=== PATIENT | female | born 1950 | race Caucasian/White ===

== ENCOUNTER → 2022-10-22 13:53 | Outpatient (BNVA) | payer OTHER, SELFPAY | PROVIDERS: PCP Internal Medicine; Visit Provider Psychiatry & Neurology Neurology | DX: G43.909 Migraine, unspecified, not intractable, without status migrainosus (principal) ==

== ENCOUNTER → 2022-12-31 10:28 | Outpatient (BNVA) | payer OTHER, SELFPAY | PROVIDERS: PCP Internal Medicine; Visit Provider Nurse Practitioner Family | DX: Z13.89 Encounter for screening for other disorder (principal) ==

== ENCOUNTER → 2023-04-02 11:00 | Outpatient (BNVA) | payer OTHER, SELFPAY | PROVIDERS: PCP Internal Medicine; Visit Provider Nurse Practitioner Family ==

== ENCOUNTER 2023-10-04 10:57 | Outpatient (AMB) | payer OTHER, SELFPAY ==
--- NOTE | 2023-10-04 11:00 | A.OFFVIS_ITS ---
Intake Vital Signs 10/04/23 11:01 Weight 115 lb BP 140/82 H Blood Pressure Location Lt brachial Position Sitting Pulse 78 Pulse Source Pulse Oximeter Pulse Oximetry (%) 98 Oxygen Delivery Method Room Air Intake Visit Reasons: 6m follow up stoke/ Confirmed Allergies cephalexin [From Keflex] Allergy (Unknown, Verified 10/04/23 11:03) Unknown erythromycin base Allergy (Unknown, Verified 10/04/23 11:03) Unknown Penicillins Allergy (Unknown, Verified 10/04/23 11:03) Unknown Sulfa (Sulfonamide Antibiotics) Allergy (Unknown, Verified 10/04/23 11:03) Unknown tetracycline Allergy (Unknown, Verified 10/04/23 11:03) Unknown Medication List - Last Reconciled 10/04/23 by Mirtha Gr, JANINA apixaban (Eliquis) 2.5 mg PO BID fluorometholone 0.1% 1 drp ophthalmic (eye) Q6H loratadine 10 mg PO DAILY lorazepam 1 mg PO DAILY PRN netarsudil-latanoprost 0.02-0.005 % (Rocklatan) 1 drp ophthalmic (eye) DAILY topiramate 1/2 tab qam and 1 tab qhs orally .; 90 days ubrogepant (Ubrelvy) 100 mg orally at onset of headaches , can repeta in 2 hrs if needed; maximum 2 tabs a day MDD 2 tabs HPI HPI Comments History of Present Illness Details 73-yr-old female presents for f/u visit, accompanied by her . Pt denies any significant interval medical changes. In Aug, pt reached out d/t worsening migraine. We increased Topiramate to 25mg qam and 50mg qhs. She is tolerating this increase well She denies any recent severe migraine since increasing Topiramate, however still having at least a low grade headache most days. Using Tylenol prn- has used it 4-5 x's since mid-Aug. Has not been needing to use Ubrelvy. She is wondering about taking her Lorazepam for an upcoming flight/vacation to [place]. [facility] Medical History Migraine Back pain Eczema Anxiety Pulmonary embolism Adrenal adenoma DVT (deep venous thrombosis) SAH (subarachnoid hemorrhage) Left homonymous hemianopsia CVA (cerebral vascular accident) PFO (patent foramen ovale) Depression Right shoulder pain HTN (hypertension) Surgical History Hx of cataract surgery S/P patent foramen ovale closure Status post tonsillectomy and adenoidectomy H/O colonoscopy Family History Father Coronary artery disease HTN (hypertension) Hyperlipidemia Mother Diabetes Hyperlipidemia HTN (hypertension) Brother Leukemia Social History (Updated 10/04/23 @ 11:05 by Yesenia Giraldo) Alcohol intake: current Alcohol intake frequency: holidays/special occasions only Patient Tobacco Use Status: Never used Tobacco Review of Systems Const All systems reviewed & are unremarkable except as noted in HPI and below Physical Exam Vital Signs: Last Vital Signs Pulse 78 10/04/23 11:01 BP 140/82 H 10/04/23 11:01 Pulse Ox 98 10/04/23 11:01 Oxygen Delivery Method Room Air 10/04/23 11:01 Const General: cooperative and no acute distress Orientation/consciousness: patient oriented x3 HEENT Head: Yes normocephalic Resp Effort & Inspection: normal respiratory effort and able to speak in complete sentences Neuro General: patient oriented x3, gait normal and CN's II-XI intact bilaterally Cognition (Neuro): normal cognition Motor exam (neuro): 5/5 motor strength present throughout Psych Appearance: grossly normal Mental Status: mental status grossly normal Speech and movement: Normal speech and movement present Affect: normal affect Attitude: cooperative Thought process: Normal thought process present Thought content: Normal thought content present Insight: Good insight present (Psych) Judgement: Good judgement present (Psych) Assessment & Plan Assessment & Plan (1) Migraine: Code(s): G43.909 - Migraine, unspecified, not intractable, without status migrainosus (2) Anxiety: Code(s): F41.9 - Anxiety disorder, unspecified (3) CVA (cerebral vascular accident): Code(s): I63.9 - Cerebral infarction, unspecified Plan For migraine prevention: Increase Topiramate from 25mg qam and 50mg qhs to 50mg bid- start after coming back from [place]. Previous trials: Propranolol, Amitriptyline- ineffective. Riboflavin 400mg qam and Magnesium 400mg qhs- caused GI s/e's Future considerations: CGRP MaB ? For acute migraine tx: Tylenol prn. Continue Ubrelvy 100mg prn, may repeat in 2 hrs (max 200mg/day), may adjunct w/ Tylenol. Contraindications: NSAIDs d/t Eliquis use. ? For h/o CVA: Continue Eliquis. ? f/u in 6 months or sooner prn Medications: Changed From topiramate 1/2 tab qam and 1 tab qhs orally .; 90 days 145 tabs 1RF To topiramate 50 mg PO BID 90 days 180 tabs 1RF Coding Level of Care Code Est Pt Level 4 (19724) Diagnoses Migraine G43.909 Anxiety F41.9 CVA (cerebral vascular accident) I63.9
[2023-10-04 11:01] VITALS: BP 140/82; PULSE 78; O2SAT 98
== END 2023-10-04 11:55 | disposition home or self-care (01) ==
PROVIDERS: PCP Internal Medicine; Visit Provider Nurse Practitioner Family
DX: G43.909 Migraine, unspecified, not intractable, without status migrainosus (principal); F41.9 Anxiety disorder, unspecified; I69.398 Other sequelae of cerebral infarction
CPT/HCPCS: 99214

== ENCOUNTER → 2023-10-04 10:57 | Outpatient (BNVA) | payer OTHER, SELFPAY | PROVIDERS: PCP Internal Medicine; Visit Provider Nurse Practitioner Family ==

== ENCOUNTER 2024-04-03 11:32 | Outpatient (AMB) | payer OTHER, SELFPAY ==
--- NOTE | 2024-04-03 11:33 | A.OFFVIS_ITS ---
Vital Signs 04/03/24 11:34 Height 5 ft 2 in Weight 112 lb BMI 20.5 BP 144/74 H Blood Pressure Location Lt brachial Position Sitting Pulse 82 Pulse Source Pulse Oximeter Pulse Oximetry (%) 99 Oxygen Delivery Method Room Air Intake Visit Reasons: 6 mo f/u - Stoke-CONF Intake Note: Patient presents for 6 month follow up stroke. patient has no issues Allergies cephalexin [From Keflex] Allergy (Unknown, Verified 04/03/24 11:37) Unknown erythromycin base Allergy (Unknown, Verified 04/03/24 11:37) Unknown Penicillins Allergy (Unknown, Verified 04/03/24 11:37) Unknown Sulfa (Sulfonamide Antibiotics) Allergy (Unknown, Verified 04/03/24 11:37) Unknown tetracycline Allergy (Unknown, Verified 04/03/24 11:37) Unknown Medication List - Last Reconciled 04/03/24 by JANINA Lundberg apixaban (Eliquis) 2.5 mg PO BID fluorometholone 0.1% 1 drp ophthalmic (eye) Q6H loratadine 10 mg PO DAILY lorazepam 1 mg PO DAILY PRN netarsudil-latanoprost 0.02-0.005 % (Rocklatan) 1 drp ophthalmic (eye) DAILY topiramate 50 mg PO BID 90 days ubrogepant (Ubrelvy) 100 mg orally at onset of headaches , can repeta in 2 hrs if needed; maximum 2 tabs a day MDD 2 tabs HPI Comments Details: 73-yr-old female presents for f/u visit. Pt denies any significant interval medical changes. Pt states her migraines are well-controlled with the increased Topiramate. She is tolerating the Topiramate well. Now just has a brief headache that resolves with closing her eyes. Has not needed to sonny Tylenol or Ubrelvy in a long time. Her BP is a bit elevated today- 144/76- pt states tends be slightly elevated when checked at an MD office. She does not usually check her BP at home- her has a BP cuff. [facility] Medical History Migraine Back pain Eczema Anxiety Pulmonary embolism Adrenal adenoma DVT (deep venous thrombosis) SAH (subarachnoid hemorrhage) Left homonymous hemianopsia CVA (cerebral vascular accident) PFO (patent foramen ovale) Depression Right shoulder pain HTN (hypertension) Surgical History Hx of cataract surgery S/P patent foramen ovale closure Status post tonsillectomy and adenoidectomy H/O colonoscopy Family History Father Coronary artery disease HTN (hypertension) Hyperlipidemia Mother Diabetes Hyperlipidemia HTN (hypertension) Brother Leukemia Social History (Updated 10/04/23 @ 11:05 by Yesenia Giraldo) Alcohol intake: current Alcohol intake frequency: holidays/special occasions only Patient Tobacco Use Status: Never used Tobacco Physical Exam Vital Signs: Last Vital Signs Pulse 82 04/03/24 11:34 BP 144/74 H 04/03/24 11:34 Pulse Ox 99 04/03/24 11:34 Oxygen Delivery Method Room Air 04/03/24 11:34 BMI result Body Mass Index 20.5 Const General: cooperative and no acute distress Orientation/consciousness: patient oriented x3 Resp Effort & Inspection: normal respiratory effort and able to speak in complete sentences Neuro General: patient oriented x3 Cranial nerves: Yes CN's II-XII intact bilaterally Cognition (Neuro): normal cognition Psych Appearance: grossly normal Mental Status: mental status grossly normal Speech and movement: Normal speech and movement present Affect: normal affect Attitude: cooperative Assessment & Plan Assessment & Plan (1) Migraine: Code(s): G43.909 - Migraine, unspecified, not intractable, without status migrainosus Category: Medical (2) CVA (cerebral vascular accident): Code(s): I63.9 - Cerebral infarction, unspecified Category: Medical (3) HTN (hypertension): Code(s): I10 - Essential (primary) hypertension Category: Medical Plan For migraine prevention: Continue Topiramate 50mg bid. Previous trials: Propranolol, Amitriptyline- ineffective. Riboflavin 400mg qam and Magnesium 400mg qhs- caused GI s/e's Future considerations: CGRP MaB ? For acute migraine tx: Tylenol prn. Continue Ubrelvy 100mg prn, may repeat in 2 hrs (max 200mg/day), may adjunct w/ Tylenol. Contraindications: NSAIDs d/t Eliquis use. ? For h/o CVA: Advised to check BP at home- to assess if BP are truly lower at home. If elevated BP persists, consider anti-HTN tx. Continue Eliquis. ? f/u in 6 months or sooner prn Coding Level of Care Code Est Pt Level 4 (12604) Diagnoses Migraine G43.909 CVA (cerebral vascular accident) I63.9 HTN (hypertension) I10
[2024-04-03 11:34] VITALS: BP 144/74; PULSE 82; O2SAT 99; BMI 20.5
== END 2024-04-03 12:15 | disposition home or self-care (01) ==
PROVIDERS: PCP Internal Medicine; Visit Provider Nurse Practitioner Family
DX: G43.909 Migraine, unspecified, not intractable, without status migrainosus (principal); I69.398 Other sequelae of cerebral infarction; I10 Essential (primary) hypertension
CPT/HCPCS: 99214

== ENCOUNTER → 2024-04-03 11:32 | Outpatient (BNVA) | payer OTHER, SELFPAY | PROVIDERS: PCP Internal Medicine; Visit Provider Nurse Practitioner Family ==

== ENCOUNTER 2024-10-23 10:56 | Outpatient (AMB) | payer OTHER, SELFPAY ==
--- NOTE | 2024-10-23 11:03 | A.OFFVIS_ITS ---
Vital Signs 10/23/24 11:08 Height 5 ft 2 in Weight 112 lb BMI 20.5 Intake Visit Reasons: 6 month F/U Intake Note: patient presents for 6 month follow up Allergies cephalexin [From Keflex] Allergy (Unknown, Verified 10/23/24 11:07) Unknown erythromycin base Allergy (Unknown, Verified 10/23/24 11:07) Unknown Penicillins Allergy (Unknown, Verified 10/23/24 11:07) Unknown Sulfa (Sulfonamide Antibiotics) Allergy (Unknown, Verified 10/23/24 11:07) Unknown tetracycline Allergy (Unknown, Verified 10/23/24 11:07) Unknown Medication List - Last Reconciled 10/23/24 by Sasha Simpson PA-C apixaban (Eliquis) 2.5 mg PO BID fluorometholone 0.1% 1 drp ophthalmic (eye) Q6H loratadine 10 mg PO DAILY lorazepam 1 mg PO DAILY PRN netarsudil-latanoprost 0.02-0.005 % (Rocklatan) 1 drp ophthalmic (eye) DAILY topiramate 50 mg PO BID 90 days ubrogepant (Ubrelvy) 100 mg orally at onset of headaches , can repeta in 2 hrs if needed; maximum 2 tabs a day MDD 2 tabs HPI Comments Details: 74-yr-old left handed female presents for f/u of chronic migraines post TIA/CVA. Pt denies any significant interval medical changes. She states the migraines are well-controlled with the increased dose of Topiramate 50mg PO BID. Once in a while if she does not go to sleep on time, they will occur, slight teeny tiny headache , not migraines. The Ubrelvy did not help her migraines. She has not used Tylenol in months. She drinks lots of fluids, has a good diet, knows and avoids triggers, walks on the treadmill daily, sleeps well. Vision in the left eye is improving, followed by Dr. Paulino in [place], for glaucoma. Denies constipation, mood or cognitive decline, doesn't drive since the stroke. Blood pressure is stable, she states it tends to be slightly elevated when checked at the MD's office. She does not usually check her BP at home- her has a BP cuff. [facility] Medical History Migraine Back pain Eczema Anxiety Pulmonary embolism Adrenal adenoma DVT (deep venous thrombosis) SAH (subarachnoid hemorrhage) Left homonymous hemianopsia CVA (cerebral vascular accident) PFO (patent foramen ovale) Depression Right shoulder pain HTN (hypertension) Surgical History Hx of cataract surgery S/P patent foramen ovale closure Status post tonsillectomy and adenoidectomy H/O colonoscopy Family History Father Coronary artery disease HTN (hypertension) Hyperlipidemia Mother Diabetes Hyperlipidemia HTN (hypertension) Brother Leukemia Social History Alcohol intake: current Alcohol intake frequency: holidays/special occasions only Patient Tobacco Use Status: Never used Tobacco Review of Systems Const All systems reviewed & are unremarkable except as noted in HPI and below Physical Exam Vital Signs: BMI result Body Mass Index 20.5 Const General: cooperative, comfortable and no acute distress Nutritional Appearance: average body habitus Orientation/consciousness: patient oriented x3 HEENT Face and sinus: Yes normal facial exam and Yes face symmetric Eyes Pupils: Equal, round and reactive pupils present Resp Effort & Inspection: normal respiratory effort and able to speak in complete sentences Neuro General: patient oriented x3 and moves all extremities Cranial nerves: Yes CN's II-XII intact bilaterally, Yes Equal, round and reactive pupils present, Yes Normal accommodation reflex present, Yes Bilaterally intact EOM present, Yes Normal facial strength present, Yes Midline tongue present, Yes Symmetric palate elevation present, Yes Ability to bilaterally rotate head present and Yes Ability to bilaterally elevate shoulders present Cognition (Neuro): normal cognition Gait exam (Neuro): Normal gait present Motor exam (neuro): 5/5 motor strength present throughout, Normal motor muscle tone present throughout and Other motor observations present (L. hand slight tremor) Deep tendon reflexes (DTR's): Right triceps reflex intensity grade: 2+, Left triceps reflex intensity grade: 2+, Rt Biceps (C5, C6): 2+, Left biceps reflex intensity grade: 2+, Right brachioradialis reflex intensity grade: 2+, Left brachioradialis reflex intensity grade: 2+, Right patellar reflex intensity grade: 2+ and Left patellar reflex intensity grade: 2+ Coordination: [id number] test normal Psych Appearance: grossly normal Speech and movement: Normal speech and movement present Affect: normal affect Attitude: cooperative Thought process: Normal thought process present Thought content: Normal thought content present Insight: Good insight present (Psych) Judgement: Good judgement present (Psych) Results Reviewed Results Reviewed: MRI 2022 - Chronic small vessel ischemia, white matter hypodensities and lacunar infarcts, volume loss. Encephalomalacic changes - R. Temporal and Parieto- occiptal lobes, with ex- vaccuo dilation of body and occipital lobe. DX: Transient Global Amnesia DDX: TIA / CVA/ Anxiety Assessment & Plan Assessment & Plan (1) Migraine: Code(s): G43.909 - Migraine, unspecified, not intractable, without status migrainosus Category: Medical Qualifiers: Intractability: intractable Migraine type: other Status migrainosus presence: without status migrainosus Qualified Code(s): G43.819 - Other migraine, intractable, without status migrainosus (2) CVA (cerebral vascular accident): Code(s): I63.9 - Cerebral infarction, unspecified Category: Medical Qualifiers: CVA mechanism: unspecified Qualified Code(s): I63.9 - Cerebral infarction, unspecified (3) HTN (hypertension): Code(s): I10 - Essential (primary) hypertension Category: Medical Qualifiers: Hypertension type: primary hypertension Qualified Code(s): I10 - Essential (primary) hypertension Plan For migraine prevention: Continue Topiramate 50mg bid. Previous trials: Propranolol, Amitriptyline- ineffective. Riboflavin 400mg qam and Magnesium 400mg qhs- caused GI s/e's Future considerations: CGRP MaB ? For acute migraine tx: Tylenol prn. Continue Ubrelvy 100mg prn, may repeat in 2 hrs (max 200mg/day), may adjunct w/ Tylenol. Contraindications: NSAIDs d/t Eliquis use. ? For h/o CVA: Advised to check BP at home- to assess if BP are truly lower at home. If elevated BP persists, consider anti-HTN tx. Continue Eliquis. ? f/u in 6 months or sooner prn Medications: Refilled topiramate 50 mg PO BID 180 tabs 1RF 90 days Coding Level of Care Code Est Pt Level 4 (76060) Diagnoses Other migraine without status migrainosus, intractable G43.819 Intractability: intractable Migraine type: other Status migrainosus presence: without status migrainosus Cerebrovascular accident (CVA), unspecified mechanism I63.9 CVA mechanism: unspecified Primary hypertension I10 Hypertension type: primary hypertension Time Spent (min) 40 Comment Improved migraines
[2024-10-23 11:08] VITALS: BMI 20.5
== END 2024-10-23 11:38 | disposition home or self-care (01) ==
PROVIDERS: PCP Internal Medicine; Visit Provider Nurse Practitioner Family
DX: I69.398 Other sequelae of cerebral infarction (principal); G43.819 Other migraine, intractable, without status migrainosus; I10 Essential (primary) hypertension
CPT/HCPCS: 99215

== ENCOUNTER 2025-04-23 11:01 | Outpatient (AMB) | payer OTHER, SELFPAY ==
[2025-04-23 11:02] VITALS: BP 148/80; PULSE 70; O2SAT 100; BMI 20.4
--- NOTE | 2025-04-23 11:02 | MHC.OFFVIS ---
Vital Signs 04/23/25 11:02 Height 5 ft 2 in Weight 111 lb 6 oz BMI 20.4 BP 148/80 H Blood Pressure Location Rt brachial Position Sitting Pulse 70 Pulse Source Pulse Oximeter Pulse Oximetry (%) 100 Oxygen Delivery Method Room Air Intake Visit Reasons: 6 month F/U Intake Note: Patient here for a follow-up, feeling headache free. 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 Pt denies any significant interval medical changes. She says she sleeps well, and her tells her she snores, she does not wake her self up or gasp for air. She states the migraines are well-controlled with the increased dose of Topiramate 50mg PO BID. Once in a while if she does not go to sleep on time, they will occur, slight teeny tiny headache , not migraines. The Ubrelvy did not help her migraines and she has not used Tylenol in months. She drinks lots of fluids, has a good diet, knows and avoids triggers, walks on the treadmill daily, sleeps well. Vision in the left eye is improving, she is able to see peripherally at the edge of the l. eye better now, and she is followed by Dr. Paulino in [facility], for glaucoma adminsters Rocklatan drops at night and refresh at night. Denies constipation, mood or cognitive decline, doesn't drive since the stroke in 2017. Blood pressure is stable, she states it tends to be slightly elevated when checked at the MD's office. She does not usually check her BP at home- her has a BP cuff, though her bp is 148/80 in clinic today. Patient Education re: HTN being the #1 modifiable risk factor to avoid cardiovascular events, and she should have a conversation with her pcp if BP is not well managed. PSG and benefits of cpap discussed today, she will think about it and f/u. Labs? [facility] Medical History Migraine Back pain Eczema Anxiety Pulmonary embolism Adrenal adenoma DVT (deep venous thrombosis) SAH (subarachnoid hemorrhage) Left homonymous hemianopsia CVA (cerebral vascular accident) PFO (patent foramen ovale) Depression Right shoulder pain HTN (hypertension) Surgical History Hx of cataract surgery S/P patent foramen ovale closure Status post tonsillectomy and adenoidectomy H/O colonoscopy Family History Father Coronary artery disease HTN (hypertension) Hyperlipidemia Mother Diabetes Hyperlipidemia HTN (hypertension) Brother Leukemia Social History Alcohol intake: current Alcohol intake frequency: holidays/special occasions only Patient Tobacco Use Status: Never used Tobacco Physical Exam Vital Signs: Last Vital Signs Pulse 70 04/23/25 11:02 BP 148/80 H 04/23/25 11:02 Pulse Ox 100 04/23/25 11:02 Oxygen Delivery Method Room Air 04/23/25 11:02 BMI result Body Mass Index 20.4 Const General: cooperative, comfortable and no acute distress Nutritional Appearance: average body habitus Orientation/consciousness: patient oriented x3 HEENT Face and sinus: Yes normal facial exam and Yes face symmetric Eyes Pupils: Equal, round and reactive pupils present Resp Effort & Inspection: normal respiratory effort and able to speak in complete sentences Neuro Other: Eyes are bilaterally irritated sclera, her baseline. General: patient oriented x3 and moves all extremities Cranial nerves: Yes CN's II-XII intact bilaterally, Yes Equal, round and reactive pupils present, Yes Normal accommodation reflex present, Yes Bilaterally intact EOM present, Yes Normal facial strength present, Yes Midline tongue present, Yes Symmetric palate elevation present, Yes Ability to bilaterally rotate head present and Yes Ability to bilaterally elevate shoulders present Cognition (Neuro): normal cognition Gait exam (Neuro): Normal gait present Motor exam (neuro): 5/5 motor strength present throughout, Normal motor muscle tone present throughout and Other motor observations present (L. hand slight tremor) Coordination: [id number] test normal Psych Appearance: grossly normal Speech and movement: Normal speech and movement present Affect: normal affect Attitude: cooperative Thought process: Normal thought process present Thought content: Normal thought content present Insight: Good insight present (Psych) Judgement: Good judgement present (Psych) Results Reviewed Results Reviewed: Medical Note 12/2022 re: AMS TIA/ TVL / Ischemic Assessment & Plan Assessment & Plan (1) Migraine: Comment: topiramate rf requested today 50mg PO BID Code(s): G43.909 - Migraine, unspecified, not intractable, without status migrainosus Category: Medical Qualifiers: Migraine type: other Status migrainosus presence: without status migrainosus Intractability: intractable Qualified Code(s): G43.819 - Other migraine, intractable, without status migrainosus (2) CVA (cerebral vascular accident): Code(s): I63.9 - Cerebral infarction, unspecified Category: Medical Qualifiers: CVA mechanism: unspecified Qualified Code(s): I63.9 - Cerebral infarction, unspecified (3) HTN (hypertension): Code(s): I10 - Essential (primary) hypertension Category: Medical Qualifiers: Hypertension type: primary hypertension Qualified Code(s): I10 - Essential (primary) hypertension (4) Loud snoring: Comment: declines psg today, will consider it and f/u Code(s): R06.83 - Snoring Category: Medical Plan Snoring PSG: will consider and f/u with clinic. For migraine prevention: Continue Topiramate 50mg bid. Previous trials: Ubrelvy, Propranolol, Amitriptyline- ineffective. Riboflavin 400mg qam and Magnesium 400mg qhs- caused GI s/e's Future considerations: CGRP MaB ? For acute migraine tx: No longer takes tylenolol. Did not tolerate Ubrelvy 100mg prn. Contraindications: NSAIDs d/t Eliquis use. ? For h/o CVA: Advised to check BP at home- to assess if BP are truly lower at home. If elevated BP persists, consider anti-HTN tx. Continue Eliquis. ? f/u in 6 months or sooner prn Medications: Changed From topiramate 50 mg PO BID 90 days 180 tabs 1RF G43.819 - Other migraine, intractable, without status migrainosus To topiramate take 1(50mg tablet) by mouth twice a day. 50 mg PO BID 180 tabs 3RF migraines 90 days MDD 100mg G43.819 - Other migraine, intractable, without status migrainosus Patient Instructions: Sleep Hygiene provided: set a scheduled bedtime and wake time to help regulate the circadian rhythm and balance the release of pituitary hormones. Sleep in a dark room, temperatures below 68 degrees, and no devices n bed. Limit caffeinated products 6 hours prior to bed, and limit fluids 2-4 hours prior to bed. Gentle night yoga, diffusing essential oils, and playing soft music can be relaxing. Coding Level of Care Code Est Pt Level 4 (36048) Diagnoses Other migraine without status migrainosus, intractable G43.819 Migraine type: other Status migrainosus presence: without status migrainosus Intractability: intractable Cerebrovascular accident (CVA), unspecified mechanism I63.9 CVA mechanism: unspecified Primary hypertension I10 Hypertension type: primary hypertension Loud snoring R06.83 Time Spent (min) 20 Comment Improving
--- OUTSIDE RECORDS SUMMARY | 2025-04-23 12:35 | XMS_ITS | Clinical Summary ---
Author Organization [facility] Address [address] [place] [address] Phone Care Team Providers Care Phonograph Mechanic Name Role Phone Fareed Crawford MD Primary Care Provider [phone] Allergies Active Allergy Reactions Criticality Noted Date Comments Cephalexin 04/02/2020 Clindamycin Nausea And Vomiting,Rash 02/29/2024 Erythromycin Nausea And Vomiting 08/10/2011 Grapefruit Extract Nausea And Vomiting 10/13/20 05 Other 04/02/2020 Penicillin G Rash 12/27/2019 Sulfa (Sulfonamide Antibiotics) Nausea And Vomiting 10/13/2005 Tetracycline Nausea And Vomiting 10/13/2005 Medications dexAMETHasone (DECADRON) 0.1 % ophthalmic solution 4 Active topiramate (TOPAMAX) 50 mg tablet TAKE 1/2 TABLET BY MOUTH EVERY MORNING AND 1 TABLET BY MOUTH EVERY NIGHT AT BEDTIME 3 Active loratadine (CLARITIN) 10 mg tablet TAKE 1 TABLET BY MOUTH DAILY( TAKE EVERY MORNING) 3 Active fluorometholone acetate (FLAREX) 0.1 % ophthalmic suspension 1 Drop every other day. Active polyvinyl alcohol-povidon e, PF, (ARTIFICIAL TEARS) 1.4-0.6 % ophthalmic solution Administer into affected eye(s). Active netarsudiL-david noprost (Rocklatan) 0.02-0.005 % drops Place 1 Drop into both eyes at bedtime. 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 Burkett in 12/2018 with most recent echocardiogram wit normalization of her atrial size, closure device in place, and no evidence of shunting at rest or with Valsalva. This is excellent news! 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 We will plan for surveillance echocardiogram in about 2 years and a follow-up with Dr. 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 Anxiety state 01/17/2007 Overview (10/05/2024): with flying usually takes 0.5 mg 4 tabs before getting on plane Backache 01/17/2007 Overview (10/05/2024): sees chiro-OA RUBIO update Eczema 01/17/2007 Migraine with aura 12/31/2005 Overview (10/05/2024): 04/08 ct head negative Saw dr jeffery BERGERON update Immunizations Name Administration Dates Next Due Influenza Quadravalent, MDCK , 0.5ml, with preservative (Flucelvax) 6mo and older 07/20/2017 Influenza trivalent, 0.5mL ( Fluad) 65yo and older 08/25/2021,08/15/2020,08/21/2019,08/04 Influenza trivalent, 0.5mL, preservative free (Fluarix; FluLaval; Fluzone) ages 6mo and older (Afluria) 3 years and older 08/07/2016,08/02/2015,08/10/2014,08/03,08/02/2012 Influenza, Unspecified 07/20/2023 Plethora SARS-CoV-2 COVID-19, mRNA, LNP-S, preservative free 07/20/2023,08/21/2021 Pneumococcal conjugate 13 va lent (Prevnar 13, PCV13) 2mo and older 10/14/2019 Pneumococcal polysaccharide 23 valent (Pneumovax 23) 2yo and older 04/22/2023 Td, Unspecified 07/31/2002 Tdap Tetanus diptheria acell ular pertussis (Boostrix; Adacel) 7yo and older 12/21/2024,06/28/2012 Zoster Live 12/22/2012 Zoster recombinant (Shingrix ) 19yo and older 02/18/2022,09/17/2021 Surgical History Surgery Date Site/Laterality Comments TONSILLECTOMY ADENOIDECTOMY, BILATERAL MYRINGOTOMY AND TUBES PROCEDURE: DE TONSILLECTOMY & ADENOIDECTOMY <AGE 12 COLONOSCOPY 05/13/2005 PROCEDURE: HISTORICAL COLONOSCOPY; COMMENT: normal COLONOSCOPY 2014 PROCEDURE: HISTORICAL COLONOSCOPY; COMMENT: 7 mm SC polyp: low risk adenoma. 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 (HCC) Family History Medical History Relation Name Comments Leukemia Brother 1 Coronary artery disease Father Hyperlipidemia Father Hypertension Father Diabetes Mother Hyperlipidemia Mother Hypertension Mother Breast cancer Neg Hx Colon cancer Neg Hx Relation Name Status Comments Brother 1 Brother 2 Alive 3,eldest had maría ng transplant Father (Age 77) Mother (Age 79) Social History Tobacco Use Types Packs/Day Years Used Date Smoking Tobacco: Never Smokeless Tobacco: Never Tobacco Cessation:Counseling Given: Not Answered Alcohol Use Standard Drinks/Week Comments Not Currently 0 (1 standard drink = 0.6 oz pur e alcohol) Housing Instability Answer Date Recorde d Are you worried that in the next 2 months you may not have stable housing? No 12/14/2024 Food Access & Nutrition Answer Date Rec orded Do you have access to a vari ety of food including fruits and vegetables? Yes 12/14/2024 Access to Healthcare Answer Date Record ed Within the last 3 months, ho w many times did you visit the emergency department for your medical care? 0 12/14/2024 Health Literacy Answer Date Recorded How often do you need to hav e someone help you when you read instructions, pamphlets, or other written material from your doctor or pharmacy? Rarely 12/14/2024 Caregiver: How often do you need to have someone help you when you read instructions, pamphlets, or other written material from your doctor or pharmacy? Not on file 12/14/2024 Financial Risk Answer Date Recorded How hard is it for you to pa y for the very basics like food, housing, medical care, and air conditioning / heating? Not very hard 12/14/2024 Transportation Answer Date Recorded Has the lack of transportati on kept you from meetings, work, or from getting things needed for daily living? No Has the lack of transportati on kept you from medical appointments or from getting medications? No 12/14/2024 Social Isolation Answer Date Recorded How often do you feel lonely or isolated from those around you? Sometimes 12/14/2024 Food Risk Answer Date Recorded Within the past 12 months we worried whether our food would run out before we got money to buy more. Never true 12/14/2024 Within the past 12 months th e food we bought just didn't last and we didn't have money to get more. Never true 12/14/2024 Dependent Care Answer Date Recorded Do you need help finding or paying for care for your loved ones. For example, child welfare specialist or elderly care for an older adult? No 12/14/2024 Education Answer Date Recorded Do you think completing more education or training, like finishing a GED, going to college, or learning a trade, would be helpful for you? No 12/14/2024 Employment and Income Answer Date Recor ded During the last four weeks, have you been actively looking for work? No 12/14/2024 Living Situation Answer Date Recorded What is your living situation? 0 12/14/2024 Comments No Sex and Gender Information Value Date Recorded Sex Assigned at Not on file Legal Sex Female 9:20 PM EST Gender Identity Not on file Sexual Orientation Not on file Obstetrics History Last Filed Vital Signs Vital Sign Reading Time Taken Comments Blood Pressure 150/80 12/21/2024 12:42 PM EST A Pulse 74 12/21/2024 12:42 PM EST Temperature - - Respiratory Rate - - Oxygen Saturation - - Inhaled Oxygen Concentration - - Weight 51.1 kg (112 lb 11.2 oz) 025 12:33 PM EST Height 157.5 cm (5' 2 ) 12/21/2024 12:3 3 PM EST Body Mass Index 20.61 12/21/2024 12:33 PM EST Plan of Treatment Upcoming Encounters Date Type Department Care Team (Late st Contact Info) Description 05/23/2025 12:30 PM EDT Ancillary Procedure [facility] [address] [place] [address] Health Maintenance Due Date Last Done Comments Falls Risk Assessment 10/10/2022 Medicare Annual Wellness Visit 10/10/2022 COVID-19 Vaccine ( season) 2025 07/11/2024, 07/28/2023, 07/20/2023, Additional history exists Depression Screening 12/14/2025 12/14/2024 Social Influencers of Health Screening 12/14/2025 12/14/2024 Breast Cancer Screening 03/10/2026 03/10/20, 03/08/2023, 12/04/2021, Additional history exists Colorectal Cancer Screening: Colonoscopy 09/19/2027 09/19/2020 Cholesterol Screening (Lipid Panel) 12/25/2029 12/25/2024, 05/22/2024, 05/22/2024 Osteoporosis Screening (Bone Density Screening) 07/29/2033 07/29/2023 DTaP,Tdap,and Td Vaccines (4 - Td or Tdap) 12/21/2034 12/21/2024, 06/28/2012, 07/31/2002 Hepatitis C Screening Completed 11/17/2013 Zoster Vaccines Completed 02/18/2022, 09/01, 12/22/2012 Pneumococcal Vaccine: 50+ Years Completed 04/22/2023, 10/14/2019 RSV Immunization Adult Patients Completed 10/28/2023 Influenza Vaccine Completed 07/11/2024, , 08/12/2022, Additional history exists HIB Vaccines Aged Out No longer eligi ble based on patient's age to complete this topic HPV Vaccines Aged Out No longer eligi ble based on patient's age to complete this topic Hepatitis A Vaccines Aged Out No long er eligible based on patient's age to complete this topic Hepatitis B Vaccines Aged Out No long er eligible based on patient's age to complete this topic IPV Vaccines Aged Out No longer eligi ble based on patient's age to complete this topic MMR Vaccines Aged Out No longer eligi ble based on patient's age to complete this topic Meningococcal ACWY Vaccine Aged Out N o longer eligible based on patient's age to complete this topic Meningococcal B Vaccine Aged Out No l onger eligible based on patient's age to complete this topic RSV Immunization Patients Under 20 months Aged Out No longer eligible based on patient's age to complete this topic Varicella Vaccines Aged Out No longer eligible based on patient's age to complete this topic Procedures Procedure Name Priority Date/Time Associated Diagnosis Comments LIPID PANEL WITH REFLEX TO DIRECT LDL Routine 12/25/2024 12:48 PM EST Screening for hyperlipidemia MIKE SCREENING DIGITAL Routine 03/10/2024 1:51 PM EDT Encounter for screening mammogram for malignant neoplasm of breast DXA BONE DENSITY STUDY 1+ SITS AXIAL SKEL Routine 07/29/2023 9:43 AM EDT Encounter for screening for osteoporosis COLONOSCOPY Routine 09/19/2020 HEPATITIS C SCREENING Routine 11/17/2013 from Last 3 Months or Most Recently Relevant to Health Maintenance Results * Lipid panel with reflex to direct LDL (12/25/2024 12:48 PM EST) Cholesterol 163 0 - 200 mg/dL LAB CHEMISTRY METHOD 12/25/2024 4:04 PM EST [facility] Triglycerides 83 0 - 150 mg/dL LAB CHEMISTRY METHOD 12/25/2024 4:04 PM EST [facility] HDL 75 >=40 mg/dL LAB CHEMISTRY METHOD 12/25/2024 4:04 PM [facility] LDL Calculated 71 0 - 100 mg/dL LAB CHEMISTRY METHOD 12/25/2024 4:04 PM [facility] VLDL Cholesterol Raymundo 16.6 mg/dL LAB CHEMISTRY METHOD 12/25/2024 4:04 PM [facility] Non HDL Chol. (LDL+VLDL) 88 <145 mg/dL LAB CHEMISTRY METHOD 12/25/2024 4:04 PM [facility] Chol/HDL Ratio 2.2 0.0 - 4.4 LAB CHEMISTRY METHOD 12/25/2024 4:04 PM [facility] Blood Venous blood specimen / Unknown Venipuncture / Unknown 12/25/2024 12:48 PM EST 12/25/2024 12:48 PM EST us Fareed Crawford MD LAB BLOOD ORDERABLES Final Res ult [facility] [address] [place] [address], * MIKE SCREENING DIGITAL (03/10/2024 1:51 PM EDT) Anatomical Region Laterality Modality Mammography 03/10/2024 11:0 6 AM EDT Narrative 03/10/2024 1:51 PM EDT [facility] Diagnostic Imaging Department [address] [place] [address] Patient: VALERIA RODRIGUEZ /Age/Sex: 1950 - 73 - F Unit#: [id number] Location/Status: SPDIMAM/REG CLI Mnemonic/Ordering Site: [facility] Ordering Physician: FAREED CRAWFORD MD [facility] Screening Digital - 03/10/24 - 1132 Report Status:Signed EXAM: [facility] Screening Digital EXAM DATE AND TIME: 03/10/2024 11:32 AM HISTORY: Annual screening COMPARISON: Multiple exams dating back to 2019 TECHNIQUE: Bilateral digital breast tomosynthesis was performed in the CC and MLO projections. Computer aided detection with PriceSpot 3D 3.1 was employed. TISSUE DENSITY: b. There are scattered areas of fibroglandular density. FINDINGS: No suspicious masses, grouped microcalcifications, or areas of architectural distortion are seen. The skin and vascularity are unremarkable. IMPRESSION: Stable mammographic appearance of the breasts. No evidence of malignancy is seen. A negative mammogram in the presence of a clinically suspicious palpable abnormality does not preclude the possibility of malignancy or alter the indications for biopsy. BI-RADS: Category 1: Negative RECOMMENDATION(S): 1: Routine screening mammogram BILATERAL in 1 year. 3341F, 7062F Dictating Physician: ASHLY ARIAS MD Electronically Signed by: ASHLY ARIAS MD Dic Date/Time: 03/10/24 1349 Sign date/Time: 03/10/24 1351 Procedure Note Ashly Arias MD - 06/19/2024 [facility] Diagnostic Imaging Department [address] [place] [id number] Patient: VALERIA RODRIGUEZ /Age/Sex: 1950 - 73 - F Unit#: [id number] Location/Status: SPDIMAM/REG CLI Mnemonic/Ordering Site: [facility] Ordering Physician: FAREED CRAWFORD MD [facility] Screening Digital - 03/10/24 - 1132 Report Status:Signed EXAM: [facility] Screening Digital EXAM DATE AND TIME: 03/10/2024 11:32 AM HISTORY: Annual screening COMPARISON: Multiple exams dating back to 2019 TECHNIQUE: Bilateral digital breast tomosynthesis was performed in the CCand MLO projections. Computer aided detection with PriceSpot 3D 3.1was employed. TISSUE DENSITY: b. There are scattered areas of fibroglandular density. FINDINGS: No suspicious masses, grouped microcalcifications, or areas ofarchitectural distortion are seen. The skin and vascularity are unremarkable. IMPRESSION: Stable mammographic appearance of the breasts. No evidence of malignancyis seen. A negative mammogram in the presence of a clinically suspicious palpable abnormality does not preclude the possibility of malignancy or alter the indications for biopsy. BI-RADS: Category 1: Negative RECOMMENDATION(S): 1: Routine screening mammogram BILATERAL in 1 year. 3341F, 7025F Dictating Physician: ASHLY ARIAS MD Electronically Signed by: ASHLY ARIAS MD Dic Date/Time: 03/10/24 1349 Sign date/Time: 03/10/24 1351 us Fareed Crawford MD IMG BI PROCEDURES Final Result * DXA BONE DENSITY STUDY 1+ SITS AXIAL SKEL (07/29/2023 9:43 AM EDT) Anatomical Region Laterality Modality Bone Densitometr y 12/29/2021 10:5 7 AM EST Narrative 07/29/2023 2:29 PM EDT BONE DENSITY Lumbar Spine T-score is +0.1 (SD relative to 20-29 y/o adult) Z-score is +2.2 (SD relative to age matched peers) This is normal by criteria defined by the WHO. Left Hip T-score is -2.2 Z-score is -0.4 This is consistent with osteopenia by criteria defined by the WHO. Comparison exam(s): significant decrease in bone density of hip when compared to most recent bone density examination Confidence level is +/-95%. Impression: Based on the World Health Organization criteria, Valeria Rodriguez should be classified as having osteopenia. This patient has a 11% risk of major osteoporotic fracture and a 2.6% risk of hip fracture over the next 10 years. (World Health Organization Fracture Risk Assessment) [facility] Department of Internal Medicine recommends using National Osteoporosis Foundation (NOF) guidelines in treatment decisions related to osteoporosis. NOF guidelines suggest considering treatment for postmenopausal women and men aged 50 or older presenting with the following: History of hip or vertebral fracture. T-score less than or equal to -2.5 (DXA) at the femoral neck, total hip, or spine, after appropriate evaluation to exclude secondary causes. Low bone mass (T-score between -1.0 and -2.5 at the femoral neck or spine) AND a 10-year probability of a hip fracture greater than or equal to 3% OR a 10-year probability of a major osteoporosis-related fracture greater than or equal to 20% based on the [place]-adapted WHO algorithm Please note that all treatment decisions require clinical judgment and consideration of individual patient factors, including patient preferences, co-morbidities, previous drug use, risk factors not captured in the FRAX model (e.g., frailty, falls, vitamin D deficiency, increased bone turnover, interval significant decline in bone density) and possible under- or over-estimation of fracture risk by FRAX. Procedure Note Sang Youngblood MD - 12/06/2023 BONE DENSITY Lumbar Spine T-score is +0.1 (SD relative to 20-29 y/o adult) Z-score is +2.2 (SD relative to age matched peers) This is normal by criteria defined by the WHO. Left Hip T-score is -2.2 Z-score is -0.4 This is consistent with osteopenia by criteria defined by the WHO. Comparison exam(s): significant decrease in bone density of hip whencompared to most recent bone density examination Confidence level is +/-95%. Impression: Based on the World Health Organization criteria, Valeria Rodriguez should beclassified as having osteopenia. This patient has a 11% risk of majorosteoporotic fracture and a 2.6% risk of hip fracture over the next 10years. (World Health Organization Fracture Risk Assessment) [facility] Department of Internal Medicine recommendsusing National Osteoporosis Foundation (NOF) guidelines in treatmentdecisions related to osteoporosis. NOF guidelines suggest consideringtreatment for postmenopausal women and men aged 50 or older presentingwith the following: History of hip or vertebral fracture. T-score less than or equal to -2.5 (DXA) at the femoral neck, total hip,or spine, after appropriate evaluation to exclude secondary causes. Low bone mass (T-score between -1.0 and -2.5 at the femoral neck or spine)AND a 10-year probability of a hip fracture greater than or equal to 3% ORa 10-year probability of a major osteoporosis-related fracture greaterthan or equal to 20% based on the [place]-adapted WHO algorithm Please note that all treatment decisions require clinical judgment andconsideration of individual patient factors, including patientpreferences, co-morbidities, previous drug use, risk factors not capturedin the FRAX model (e.g., frailty, falls, vitamin D deficiency, increasedbone turnover, interval significant decline in bone density) and possibleunder- or over-estimation of fracture risk by FRAX. Luisa Orona DIRECTOR ERP IMG DXA PROCEDURES Final Resul t * Colonoscopy (09/19/2020) [facility] Colonoscopy No interpretation , abstracted Anatomical Region Laterality Modality Other Historical Provider HEALTH MAINTENANCE Final Result * Hepatitis C Screening (11/17/2013) [facility] Hepatitis C Screening abstracted [facility] Provider HEALTH MAINTENANCE Final Result from Last 3 Months or Most Recently Relevant to Health Maintenance Insurance [employer] Advance Directives Documents on File Type Date Recorded Patient Smt Technician Expl anation Health Care Decision (hx) 10/03/2018 AD STONE DIRECTIVE Health Care Decision (hx) 10/03/2018 AD STONE DIRECTIVE Health Care Decision (hx) 10/03/2018 AD STONE DIRECTIVE Health Care Decision (hx) 10/03/2018 AD STONE DIRECTIVE Health Care Decision (hx) 10/03/2018 AD STONE DIRECTIVE Health Care Decision (hx) 10/03/2018 AD STONE DIRECTIVE Health Care Decision (hx) 10/03/2018 AD STONE DIRECTIVE Health Care Decision (hx) 10/03/2018 AD STONE DIRECTIVE Health Care Decision (hx) 10/03/2018 AD STONE DIRECTIVE Health Care Decision (hx) 10/03/2018 AD STONE DIRECTIVE Health Care Decision (hx) 10/03/2018 AD STONE DIRECTIVE Health Care Decision (hx) 10/03/2018 AD STONE DIRECTIVE Health Care Decision (hx) 10/03/2018 AD STONE DIRECTIVE Care Teams Phonograph Mechanic Relationship Specialty Start Date End Date Fareed Crawford MD [address] [place] [id number] PCP - General Internal Medicine 12/20/24
== END 2025-04-23 11:47 | disposition home or self-care (01) ==
LOC: HO.HSMS 11:01
PROVIDERS: PCP Internal Medicine; Visit Provider Physician Assistant Medical
DX: G43.819 Other migraine, intractable, without status migrainosus (principal); I69.398 Other sequelae of cerebral infarction; I10 Essential (primary) hypertension; R06.83 Snoring
CPT/HCPCS: 99214

== ENCOUNTER 2025-10-22 11:03 | Outpatient (AMB) | payer OTHER, SELFPAY ==
[2025-10-22 11:06] VITALS: BP 140/78; PULSE 74; O2SAT 99; BMI 20.6
--- NOTE | 2025-10-22 11:06 | MHC.OFFVIS ---
Vital Signs 10/22/25 11:06 Height 5 ft 2 in Weight 112 lb 6 oz BMI 20.6 BP 140/78 H Blood Pressure Location Rt brachial Position Sitting Pulse 74 Pulse Source Pulse Oximeter Pulse Oximetry (%) 99 Oxygen Delivery Method Room Air Intake Visit Reasons: 6m follow up Intake Note: Patient presents follow up Migraine Medication. Patient states since being on Topiramate she has not had an migraine. Accompanied by: Self / Same As Patient Allergies cephalexin (From Keflex) Allergy (Unknown, Verified 10/22/25 11:09) Unknown erythromycin base Allergy (Unknown, Verified 10/22/25 11:09) Unknown Penicillins Allergy (Unknown, Verified 10/22/25 11:09) Unknown Sulfa (Sulfonamide Antibiotics) Allergy (Unknown, Verified 10/22/25 11:09) Unknown tetracycline Allergy (Unknown, Verified 10/22/25 11:09) Unknown HPI Comments Details: 75-yr-old left handed female presents for f/u of chronic migraines post TIA/CVA. Pt denies any significant interval medical changes. Eczema is managed with loratidine. She says she sleeps well, her tells her she snores, she does not wake her self up or gasp for air. She states the migraines are well-controlled with the increased dose of Topiramate 50mg PO BID, no headaches either. The Ubrelvy did not help her migraines and she has not used Tylenol in months. She drinks lots of fluids, has a good diet, knows and avoids triggers, walks on the treadmill daily, and sleeps well. Vision in the left eye is improving, she is able to see peripherally at the edge of the l. eye better now, and she is followed by Dr. Paulino in [facility], for glaucoma adminsters Findley Lakelatan 1 drop in each eye, pressures are 11/and 12, and managed well she uses it 2 days off 1 day on, drops at night and refresh at night. Denies constipation, mood or cognitive decline, doesn't drive since the stroke in 2017. Blood pressure is stable, she states it tends to be slightly elevated when checked at the MD's office. She does not usually check her BP at home- her has a BP cuff, though her bp is 140/78 in clinic today. Patient Education re: HTN being the #1 modifiable risk factor to avoid cardiovascular events, and she should have a conversation with her pcp if BP is not well managed. [facility] Medical History Migraine Back pain Eczema Anxiety Pulmonary embolism Adrenal adenoma DVT (deep venous thrombosis) SAH (subarachnoid hemorrhage) Left homonymous hemianopsia CVA (cerebral vascular accident) PFO (patent foramen ovale) Depression Right shoulder pain HTN (hypertension) Surgical History Hx of cataract surgery S/P patent foramen ovale closure Status post tonsillectomy and adenoidectomy H/O colonoscopy Family History Father Coronary artery disease HTN (hypertension) Hyperlipidemia Mother Diabetes Hyperlipidemia HTN (hypertension) Brother Leukemia Social History Alcohol intake: current Alcohol intake frequency: holidays/special occasions only Patient Tobacco Use Status: Never used Tobacco Physical Exam Vital Signs: Last Vital Signs Pulse 74 10/22/25 11:06 BP 140/78 H 10/22/25 11:06 Pulse Ox 99 10/22/25 11:06 Oxygen Delivery Method Room Air 10/22/25 11:06 BMI result Body Mass Index 20.6 Const General: cooperative, comfortable and no acute distress Nutritional Appearance: average body habitus Orientation/consciousness: patient oriented x3 HEENT Face and sinus: Yes normal facial exam and Yes face symmetric Eyes Pupils: Equal, round and reactive pupils present Resp Effort & Inspection: normal respiratory effort and able to speak in complete sentences Neuro Other: Eyes are bilaterally irritated sclera, her baseline. General: patient oriented x3 and moves all extremities Cranial nerves: Yes CN's II-XII intact bilaterally, Yes Equal, round and reactive pupils present, Yes Normal accommodation reflex present, Yes Bilaterally intact EOM present, Yes Normal facial strength present, Yes Midline tongue present, Yes Symmetric palate elevation present, Yes Ability to bilaterally rotate head present and Yes Ability to bilaterally elevate shoulders present Cognition (Neuro): normal cognition Gait exam (Neuro): Normal gait present Motor exam (neuro): 5/5 motor strength present throughout, Normal motor muscle tone present throughout and Other motor observations present (L. hand slight tremor) Coordination: [id number] test normal Psych Appearance: grossly normal Speech and movement: Normal speech and movement present Affect: normal affect Attitude: cooperative Thought process: Normal thought process present Thought content: Normal thought content present Insight: Good insight present (Psych) Judgement: Good judgement present (Psych) Assessment & Plan Assessment & Plan (1) Migraine: Comment: topiramate rf requested today 50mg PO BID Code(s): G43.909 - Migraine, unspecified, not intractable, without status migrainosus Category: Medical Qualifiers: Migraine type: other Status migrainosus presence: without status migrainosus Intractability: intractable Qualified Code(s): G43.819 - Other migraine, intractable, without status migrainosus (2) CVA (cerebral vascular accident): Code(s): I63.9 - Cerebral infarction, unspecified Category: Medical Qualifiers: CVA mechanism: unspecified Qualified Code(s): I63.9 - Cerebral infarction, unspecified (3) HTN (hypertension): Code(s): I10 - Essential (primary) hypertension Category: Medical Qualifiers: Hypertension type: primary hypertension Qualified Code(s): I10 - Essential (primary) hypertension (4) Loud snoring: Comment: declines psg today, will consider it and f/u Code(s): R06.83 - Snoring Category: Medical Plan Snoring PSG: will consider and f/u with clinic. For migraine prevention: Continue Topiramate 50mg bid. Previous trials: Ubrelvy, Propranolol, Amitriptyline- ineffective. Riboflavin 400mg qam and Magnesium 400mg qhs- caused GI s/e's Future considerations: CGRP MaB ? For acute migraine tx: No longer takes tylenolol. Did not tolerate Ubrelvy 100mg prn. Contraindications: NSAIDs d/t Eliquis use. ? For h/o CVA: Advised to check BP at home- to assess if BP are truly lower at home. If elevated BP persists, consider anti-HTN tx. Continue Eliquis. ? f/u in 6 months or sooner prn Patient Instructions: PSG and benefits of cpap discussed today, she will think about it and f/u. request Labs? with [facility] in [place] Juanito Samson for labs. Coding Level of Care Code Est Pt Level 4 (24554) Diagnoses Other migraine without status migrainosus, intractable G43.819 Migraine type: other Status migrainosus presence: without status migrainosus Intractability: intractable Cerebrovascular accident (CVA), unspecified mechanism I63.9 CVA mechanism: unspecified Primary hypertension I10 Hypertension type: primary hypertension Loud snoring R06.83
--- OUTSIDE RECORDS SUMMARY | 2025-10-22 14:00 | XMS_ITS | Clinical Summary ---
Author Organization [facility] Address [address] [place] [address] Phone Care Team Providers Care Registration Clerk Name Role Phone Fareed Crawford MD Primary Care Provider Allergies Active Allergy Reactions Criticality Noted Date Comments Cephalexin 04/02/2020 Clindamycin Nausea And Vomiting,Rash 02/29/2024 Erythromycin Nausea And Vomiting 08/10/2011 Grapefruit Extract Nausea And Vomiting 10/13/20 05 Other 04/02/2020 Penicillin G Rash 12/27/2019 Sulfa (Sulfonamide Antibiotics) Nausea And Vomiting 10/13/2005 Tetracycline Nausea And Vomiting 10/13/2005 Medications topiramate (TOPAMAX) 50 mg tablet TAKE 1/2 TABLET BY MOUTH EVERY MORNING AND 1 TABLET BY MOUTH EVERY NIGHT AT BEDTIME 3 Active loratadine (CLARITIN) 10 mg tablet TAKE 1 TABLET BY MOUTH DAILY( TAKE EVERY MORNING) 3 Active polyvinyl alcohol-povidon e, PF, (ARTIFICIAL TEARS) 1.4-0.6 % ophthalmic solution Administer into affected eye(s). Active netarsudiL-david noprost (Rocklatan) 0.02-0.005 % drops Place 1 Drop into both eyes at bedtime. 0 Active multivitamin with minerals tablet Take 1 tablet by mouth 1 (one) time each day. Active calcium carbonate-vitam in D 500 mg-5 mcg (200 unit) per tablet Take 1 tablet by mouth 1 (one) time each day. Active Eliquis 2.5 mg tablet Take 1 tablet (2.5 mg total) by mouth 2 (two) times a day. 180 tablet 5 Active Active Problems Problem Noted Date Diagnosed Date Osteopenia 2023 Glaucoma 04/22/2023 Elevated blood pressure read ing in office with white coat syndrome, without diagnosis of hypertension 06/24/2022 Chronic right shoulder pain 06/18/2020 Depression 11/21/2018 Paradoxical embolism 10/31/2018 Patent foramen ovale 10/31/2018 Overview (07/25/2025): -Severe MCA CVA thought to be secondary to paradoxical embolus with coexistent DVT and PE in September 2018 -She was initially admitted to the ICU as she was unable to really see antiplatelet or anticoagulation therapy secondary to a small subarachnoid hemorrhage found on CTA -BABAK September 2018 showed preserved ejection fraction of 70%, normal RV size with mildly reduced systolic function, mild left atrial argument, moderate to severe right atrial argument, severe pulmonary hypertension with RVSP 64 mmHg plus RA pressure, moderate TR though no significant valve disease otherwise noted, and sizable PFO with atrial septal aneurysm with no clot in the left atrial appendage. -She underwent a PFO closure device with Dr. Sanders with a 30 mm cardio form septal occluder device in December 2018 -Subsequent echocardiogram in June 2019 showed occlud[address] device in place -Most recent echo from 05/23/25 showed: Left ventricle cavity size is normal. Normal left ventricular wall thickness. Normal left ventricular regional wall motion. Left ventricular systolic function is in the normal range with an ejection fraction of 55-60%. Right ventricle cavity is normal. Right ventricular systolic function is normal. No hemodynamically significant valve disease. Minor valvular abnormalities as below. 30 mm Cardioform septal occluder device seen well-positioned in the interatrial septum. There is no color Doppler evidence of residual interatrial shunting. Normal left ventricular diastolic function. Normal pulmonary artery systolic pressure. 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 Anxiety state 01/17/2007 Overview (10/05/2024): with flying usually takes 0.5 mg 4 tabs before getting on plane Backache 01/17/2007 Overview (10/05/2024): sees chiro-OA O update Eczema 01/17/2007 Migraine with aura 12/31/2005 Overview (10/05/2024): 04/08 ct head negative Saw dr gil [facility] update Immunizations Immunization Administration Dates Next Due Influenza Quadravalent, MDCK , 0.5ml, with preservative (Flucelvax) 6mo and older 07/20/2017 Influenza trivalent, 0.5mL ( Fluad) 65yo and older 08/25/2021,08/15/2020,08/21/2019,08/04 Influenza trivalent, 0.5mL, preservative free (Fluarix; FluLaval; Fluzone) ages 6mo and older (Afluria) 3 years and older 08/07/2016,08/02/2015,08/10/2014,08/03,08/02/2012 Influenza, Unspecified 07/20/2023 XGIMI SARS-CoV-2 COVID-19, mRNA, LNP-S, preservative free 07/20/2023,08/21/2021 [...] TONSILLECTOMY ADENOIDECTOMY, BILATERAL MYRINGOTOMY AND TUBES PROCEDURE: NM TONSILLECTOMY & ADENOIDECTOMY <AGE 12 COLONOSCOPY 05/13/2005 [...] for your loved ones. For example, child and family counselor or elderly care for an older adult? [...] Date Recorded What is your living situation? Unrecognized valu e 12/14/2024 Comments No Sex and Gender Information Value Date Recorded Sex Assigned at Not on file Legal Sex Female 9:20 PM EST Gender Identity Not on file Sexual Orientation Not on file Last Filed Vital Signs Vital Sign Reading Time Taken Comments Blood Pressure 148/80 06/28/2025 10:19 AM EDT Pulse 74 06/28/2025 10:19 AM EDT Temperature - - Respiratory Rate - - Oxygen Saturation 99% 06/28/2025 10:19 AM EDT Inhaled Oxygen Concentration - - Weight 52.2 kg (115 lb) 06/28/2025 10:19 AM EDT Height 157.5 cm (5' 2 ) 06/28/2025 10:19 AM EDT Body Mass Index 21.03 06/28/2025 10:19 AM EDT Plan of Treatment Health Maintenance Due Date Last Done Comments Falls Risk Assessment 10/10/2022 Medicare Annual Wellness Visit 10/10/2022 COVID-19 Vaccine ( season) 2025 07/11/2024, 07/28/2023, 07/20/2023, Additional history exists Influenza Vaccine (#1) 2025 , 07/20/2023, 08/12/2022, Additional history exists Social Influencers of Health Screening 12/14/2025 12/14/2024 Hypertension/CHF/CAD Annual BMP Blood Test 12/25/2025 12/25/2024, 05/22/2024, 05/22/2024 Breast Cancer Screening 03/10/2026 03/10/20, 03/08/2023, 12/04/2021, [...] 10/14/2019 RSV Immunization Adult Patients Completed 10/28/2023 Depression Screening Completed 12/14/2024 HIB Vaccines Aged Out No longer eligi [...] Procedure Name Priority Date/Time Associated Diagnosis Comments COMPREHENSIVE METABOLIC PANEL Routine 12/25/2024 12:48 PM EST Screening for diabetes mellitus LIPID PANEL WITH REFLEX TO DIRECT LDL [...] mg/dL LAB CHEMISTRY METHOD 12/25/2024 4:04 PM [facility] Triglycerides 83 0 - 150 mg/dL LAB CHEMISTRY METHOD 12/25/2024 4:04 PM [facility] HDL 75 >=40 mg/dL LAB CHEMISTRY METHOD 12/25/2024 4:04 PM [facility] LDL Calculated 71 0 - 100 mg/dL LAB CHEMISTRY METHOD 12/25/2024 4:04 PM [facility] VLDL Cholesterol Raymundo 16.6 mg/dL LAB CHEMISTRY METHOD 12/25/2024 4:04 PM [facility] Non HDL Chol. (LDL+VLDL) 88 <145 mg/dL LAB CHEMISTRY METHOD 12/25/2024 4:04 PM [facility] Chol/HDL Ratio 2.2 0.0 - 4.4 LAB CHEMISTRY METHOD 12/25/2024 4:04 PM [facility] Blood Venous blood specimen / Unknown Venipuncture / Unknown 12/25/2024 12:48 PM EST 12/25/2024 12:48 PM EST us Fareed Crawford MD LAB BLOOD ORDERABLES Final Res ult [facility] [address] [place] [address], [place] [phone] * (ABNORMAL) Comprehensive metabolic panel (12/25/2024 12:48 PM EST) Sodium 142 133 - 145 mmol/L LAB CHEMISTRY METHOD 12/25/2024 4:04 PM [facility] Potassium 4.0 3.5 - 5.5 mmol/L LAB CHEMISTRY METHOD 12/25/2024 4:04 PM [facility] Chloride 109 96 - 110 mmol/L LAB CHEMISTRY METHOD 12/25/2024 4:04 PM [facility] CO2 25 21 - 32 mmol/L LAB CHEMISTRY METHOD 12/25/2024 4:04 PM [facility] Anion Gap 8 3 - 11 LAB CHEMISTRY METHOD 12/25/2024 4:04 PM [facility] Glucose 115(H) 70 - 100 mg/dL LAB CHEMISTRY METHOD 12/25/2024 4:04 PM [facility] BUN 14 5 - 25 mg/dL LAB CHEMISTRY METHOD 12/25/2024 4:04 PM [facility] Creatinine 0.85 0.50 - 1.10 mg/dL LAB CHEMISTRY METHOD 12/25/2024 4:04 PM [facility] eGFR 73 >=60 mL/min/1. 73m2 LAB CHEMISTRY METHOD 12/25/2024 4:04 PM [facility] Comment:Calculation based on the Chronic Kidney Disease Epidemiology Collaboration (CKD-EPI) equation refit without adjustment for race. BUN/Creatinine Ratio 16.5 LAB CHEMISTRY METHOD 12/25/2024 4:04 PM [facility] Calcium 9.7 8.5 - 10.5 mg/dL LAB CHEMISTRY METHOD 12/25/2024 4:04 PM [facility] AST (SGOT) 16 10 - 42 unit/L LAB CHEMISTRY METHOD 12/25/2024 4:04 PM [facility] ALT (SGPT) 20 10 - 60 unit/L LAB CHEMISTRY METHOD 12/25/2024 4:04 PM [facility] Alkaline Phosphatase 85 42 - 121 unit/L LAB CHEMISTRY METHOD 12/25/2024 4:04 PM [facility] Total Protein 7.4 6.0 - 8.0 g/dL LAB CHEMISTRY METHOD 12/25/2024 4:04 PM [facility] Albumin 4.2 3.2 - 5.0 g/dL LAB CHEMISTRY METHOD 12/25/2024 4:04 PM [facility] Total Bilirubin 0.4 0.0 - 1.4 mg/dL LAB CHEMISTRY METHOD 12/25/2024 4:04 PM [facility] Blood Venous blood specimen / Unknown Venipuncture / Unknown 12/25/2024 12:48 PM EST 12/25/2024 12:48 PM EST us Fareed Crawford MD LAB BLOOD ORDERABLES Final Res ult [facility] [address] [place] [address], * MIKE SCREENING DIGITAL (03/10/2024 1:51 PM EDT) Anatomical Region Laterality Modality Mammography 03/10/2024 11:0 6 AM EDT Narrative 03/10/2024 1:51 PM EDT [facility] Diagnostic Imaging Department [address] [place] [address] Patient: VALERIA RODRIGUEZ /Age/Sex: 1950 - 73 - F Unit#: [id number] Location/Status: SPDIMAM/REG CLI Mnemonic/Ordering Site: [facility] Ordering Physician: FAREED CRAWFORD MD [facility] Screening Digital - 03/10/24 - 1132 Report Status:Signed EXAM: [facility] Screening Digital EXAM DATE AND TIME: 03/10/2024 11:32 AM HISTORY: Annual screening COMPARISON: Multiple exams dating back to 2019 TECHNIQUE: Bilateral digital breast tomosynthesis was performed in the CC and MLO projections. Computer aided detection with [employer] 3D 3.1 was employed. TISSUE DENSITY: b. [...] screening mammogram BILATERAL in 1 year. 3341F, 7008F Dictating Physician: ASHLY ARIAS MD Electronically Signed by: ASHLY ARIAS MD Dic Date/Time: 03/10/24 1349 Sign date/Time: 03/10/24 1351 Procedure Note Ashly Arias MD - 06/19/2024 [facility] Diagnostic Imaging Department [address] [place] [id number] Patient: VALERIA RODRIGUEZ /Age/Sex: 1950 - 73 - F Unit#: [id number] Location/Status: SPDIMAM/REG CLI Mnemonic/Ordering Site: [facility] Ordering Physician: FAREED CRAWFORD MD [facility] Screening Digital - 03/10/24 - 1132 Report Status:Signed EXAM: [facility] Screening Digital EXAM DATE AND TIME: 03/10/2024 11:32 AM HISTORY: Annual screening COMPARISON: Multiple exams dating back to 2019 TECHNIQUE: Bilateral digital breast tomosynthesis was performed in the CCand MLO projections. Computer aided detection with [employer] 3D 3.1was employed. TISSUE DENSITY: b. There [...] (World Health Organization Fracture Risk Assessment) [facility] Department of Internal Medicine recommends using National [...] (World Health Organization Fracture Risk Assessment) [facility] Department of Internal Medicine recommendsusing National Osteoporosis [...] of fracture risk by FRAX. Luisa Orona FILM PROCESSOR IMG DXA PROCEDURES Final Resul t * Colonoscopy (09/19/2020) [facility] Colonoscopy No interpretation , abstracted Anatomical Region Laterality Modality Other Historical Provider HEALTH MAINTENANCE Final Result * Hepatitis C Screening (11/17/2013) [facility] Hepatitis C Screening abstracted Result [facility] Provider HEALTH MAINTENANCE Final Result from Last 3 Months or Most Recently Relevant to Health Maintenance Insurance [employer] Advance Directives Documents on File Type Date Recorded Patient Night Custodian Expl anation Health Care Decision (hx) 10/03/2018 [...] (hx) 10/03/2018 AD STONE DIRECTIVE Care Teams Registration Clerk Relationship Specialty Start Date End Date Fareed Crawford MD [address] [place] [id number] PCP - General Internal Medicine 12/20/24
--- OUTSIDE RECORDS SUMMARY | 2025-10-22 14:00 | XMS_ITS | Clinical Summary ---
Author Organization [facility] Prior to 03/31/25 Address [address] [place] [address] Care Team Providers Care College Scouting Coordinator Name Role Phone Uday Sotomayor MD Primary Care Provider [phone] Allergies Active Allergy Reactions Criticality Noted Date Comments Erythromycin 04/02/2020 Cephalexin 04/02/2020 Penicillin G 04/02/2020 Sulfa Antibiotics 04/02/2020 Tetracycline 04/02/2020 Medications Medication Sig Dispensed Refills Start Date End Date Status buPROPion (WELLBUTRIN) 100 MG tablet Take 100 mg by mouth 2 (two) times a day. 0 Active PARoxetine (PAXIL) 20 MG tablet Take 20 mg by mouth every morning. 0 Active latanoprost (XALATAN) 0.005 % ophthalmic solution 1 drop every night at bedtime. 0 Active POLYVINYL ALCOHOL-POVIDONE PF OP Apply to eye. 0 Active LOTEPREDNOL ETABONATE OP Apply to eye. 0 Active MELATONIN-PYRIDOXINE PO Take by mouth. 0 Active apixaban (ELIQUIS) 5 MG TABS tablet Take by mouth every 12 (twelve) hours. 0 Active tacrolimus (PROTOPIC) 0.1 % ointment Apply topically 2 (two) times a day. 0 Active pimecrolimus (ELIDEL) 1 % cream Apply topically 2 (two) times a day. 0 Active Fluocinolone Acetonide 0.01 % SHAM Apply topically. 0 Active apixaban (ELIQUIS) 2.5 MG TABS tablet Take 1 tablet (2.5 mg total) by mouth every 12 (twelve) hours. 60 tablet 0 04/11/2020 Active Active Problems No known active problems Social History Tobacco Use Types Packs/Day Years Used Date Smoking Tobacco: Never Smokeless Tobacco: Never Alcohol Use Standard Drinks/Week Comments No 0 (1 standard drink = 0.6 oz pur e alcohol) Sex and Gender Information Value Date Recorded Sex Assigned at Not on file Gender Identity Not on file Sexual Orientation Not on file Last Filed Vital Signs Vital Sign Reading Time Taken Comments Blood Pressure 126/71 04/03/2020 10:15 AM EDT Pulse 80 04/03/2020 10:15 AM EDT Temperature 37.1 C (98.8 F) 04/03/2020 10:15 AM EDT Respiratory Rate - - Oxygen Saturation - - Inhaled Oxygen Concentration - - Weight 58.1 kg (128 lb) 04/03/2020 10:15 AM EDT Height 157.5 cm (5' 2 ) 04/03/2020 10:15 AM EDT Body Mass Index 23.41 04/03/2020 10:15 AM EDT Plan of Treatment Health Maintenance Due Date Last Done Comments Hepatitis C Screening 1950 COVID-19 Vaccine (#1) 1957 Pneumococcal Vaccine (1 of 2 - PCV) 1958 Depression Screening 1964 Preventative Health Evaluation 1970 DTap / Tdap / Td (1 - Tdap) 1971 Shingrix-Zoster Vaccine (1 of 2) 1971 Colon Cancer Screening (Colonoscopy) 1997 Breast Cancer Screening (Mammogram) 2002 RSV Adult > 60+ Yrs or Pregn ant (1 - Risk 60-74 years 1-dose series) 2012 Fall Risk Assessment 2017 Osteoporosis Screening (DEXA Scan) 2017 Influenza Vaccine (#1) 2025 Hepatitis B Vaccines Aged Out No long er eligible based on patient's age to complete this topic RSV Ped < 20 months Aged Out No longe r eligible based on patient's age to complete this topic Care Teams College Scouting Coordinator Relationship Specialty Start Date End Date Uday Sotomayor MD PCP - General Internal Medicine 04/03/20
== END 2025-10-22 11:45 | disposition home or self-care (01) ==
LOC: HO.HSMS 11:04
PROVIDERS: PCP Internal Medicine; Visit Provider Physician Assistant Medical
DX: G43.819 Other migraine, intractable, without status migrainosus (principal); I69.10 Unspecified sequelae of nontraumatic intracerebral hemorrhage; I10 Essential (primary) hypertension; R06.83 Snoring
CPT/HCPCS: 99214